=== PATIENT | female | born 1935 | race Two or more races ===

== ENCOUNTER 2023-09-06 12:23 | Inpatient (IN) | payer OTHER ==
[~2023-09-06] VITALS: Ht 144.8 cm; Wt 52.2 kg
[~2023-09-06 12:23] MED LIST: AMBIEN PAK10 MG PO; AVAPRO150 MG PO; CADUET 5 MG/101 TAB PO; CALTRATE-600/VI1 TA1 PO; CENTRUM SILVER1 TAB PO; EFFEXOR XR75 MG PO; KLONOPIN0.5 MG/TAB PO; PROTONIX40 MG PO; [UNRECOGNIZED DRUG - CODE] TD
--- NOTE | 2023-09-06 12:50 | NUR ---
SE RECIBE PTE ALERTA Y DESORIENTADA X3 EN COMPANIA DE MARADIAGA FAMILIAR. ESTA REFIERE QUE DESDE HACE ONEL KIRBY PTE SE [place] QUEJADO DE DOLOR ABDOMINAL EN CUADRANTE SUPERIOR DE MANERA INTERMITENTE. PTE TIENE HX DE PANCREATITIS, ALZHEIMER, PIEDRAS EN LA VESIVULA. SE MIDEN S/V Y SE UBICA.
[2023-09-06] MEDS ORDERED: EXELON1 EAC1 TD (12:52)
[2023-09-06] MEDS ORDERED: TOPROL XL25 M1 (12:52)
[2023-09-06] MEDS ORDERED: LOSARTAN POTAS100 MG PO (12:52)
[2023-09-06] MEDS ORDERED: ESCITALOPRAM OX10 MG PO (12:53)
[2023-09-06] MEDS ORDERED: PLAVIX75 MG (12:53)
[2023-09-06] MEDS ORDERED: PEPCID AC20 MG (12:53)
[2023-09-06] MEDS ORDERED: XELPROS2.5 ML (12:54)
[2023-09-06] MEDS ORDERED: MEMANTINE HCL10 MG PO (12:54)
[2023-09-06] MEDS ORDERED: MIRTAZAPINE15 M1 (12:54)
[2023-09-06 16:30] LABS: URINE APPEARANCE Clear; URINE BILIRRUBIN Negative (NEGATIVE); URINE COLOR Yellow; URINE GLUCOSE Negative (NEGATIVE); URINE LEUKOCYTE Negative; URINE NITRATE Negative; URINE PROTEIN Trace (NEGATIVE); URINE UROBILINOGEN 0.2 E.U./dl
[2023-09-06 16:34] LABS: URINE RBC 17.9 uL (0.0-20.8)
[2023-09-06 16:36] LABS: HEMATOCRIT 39.8 % (36.0-45.00); HEMOGLOBIN 13.9 g/dL (12.0-15.00); MEAN CELL VOLUME 89.5 fL (80.00-100.00); MEAN CORPUSCULAR HEMOGLOBIN 31.3 pg (27.00-32.0); PLATELET COUNT 225 K/uL (150-450); RED BLOOD COUNT 4.44 M/uL (4.00-6.00)
--- NOTE | 2023-09-06 16:45 | NUR ---
SE ORIENTA PTE SOBRE TX MEDICO EL CUAL REFIERE ENTENDER.SE LE EXTRAEN MUESTRAS BAJO MEDIDAS ASEPTICAS.SE CANALIZA Y SE ADMINISTRAN MEDICAMENTOS JOSE ORDEN MEDICA.SE ENTREGA CONTRASTE PARA CT Y SE ORIENTA.
[2023-09-06 16:46] LABS: URINE BACTERIA 0 uL (0.0-1933); URINE BLOOD Trace; URINE EPITHELIAL CELLS 0.4 uL (0.0-38.8); URINE WBC 0.6 uL (0.0-23.2)
[2023-09-06 16:59] LABS: BILIRUBIN TOTAL 3.42 mg/dL (0.3-1.2); BILIRUBIN,CONJUGATED 2.43 mg/dL (0.0-0.2); BILIRUBIN,UNCONJUGATED 0.99 mg/dL (0.0-0.6)
[2023-09-06 17:01] LABS: ALBUMIN 4.3 gm/dL (3.4-5.0); BILIRUBIN TOTAL 3.37 mg/dL (0.3-1.2); CREATININE SERUM 0.83 mg/dL (0.55-1.02); GFR 64.88; GLOBULINA 4.4 G/DL (2.4-3.5); POTASSIUM 4.33 mEq/L (3.5-5.1); TOTAL PROTEIN 8.7 gm/dL (6.4-8.2)
[2023-09-07 00:31] LABS: URINE APPEARANCE Clear; URINE BILIRRUBIN Negative (NEGATIVE); URINE BLOOD Small; URINE COLOR Yellow; URINE GLUCOSE Negative (NEGATIVE); URINE LEUKOCYTE Negative; URINE NITRATE Negative; URINE PROTEIN 30 (NEGATIVE)
[2023-09-07 00:33] LABS: INR 1.11; PARTIAL THROMBOPLASTIN TIME 25.9 SECONDS (22.0-34.0); PROTHROMBIN TIME 11.6 SECONDS (9.0-11.5)
[2023-09-07 00:34] LABS: URINE BACTERIA 13.8 uL (0.0-1933); URINE WBC 2.2 uL (0.0-23.2)
[2023-09-07 00:39] LABS: ALBUMIN 3.7 gm/dL (3.4-5.0); BILIRUBIN TOTAL 2.9 mg/dL (0.3-1.2); BILIRUBIN,CONJUGATED 2.19 mg/dL (0.0-0.2); BILIRUBIN,UNCONJUGATED 0.71 mg/dL (0.0-0.6)
[2023-09-07 00:43] LABS: URINE EPITHELIAL CELLS 0.6 uL (0.0-38.8)
[2023-09-07 18:10] LABS: CALCIUM 8.9 mg/dL (8.5-10.1); CREATININE SERUM 0.75 mg/dL (0.55-1.02); GFR 72.93; POTASSIUM 4.2 mEq/L (3.5-5.1)
[2023-09-09 06:28] LABS: HEMATOCRIT 35.3 % (36.0-45.00); HEMOGLOBIN 12.1 g/dL (12.0-15.00); MEAN CELL VOLUME 90.3 fL (80.00-100.00); MEAN CORPUSCULAR HEMOGLOBIN 31.1 pg (27.00-32.0); MEAN CORPUSCULAR HGB CONC 34.4 g/dl (32.0-36.0); PLATELET COUNT 197 K/uL (150-450); RED BLOOD COUNT 3.91 M/uL (4.00-6.00); RED CELL DISTRIBUTION WIDTH 13.5 % (11.5-14.5)
[2023-09-09 07:37] LABS: ALBUMIN 3.2 gm/dL (3.4-5.0); BILIRUBIN,CONJUGATED 0.43 mg/dL (0.0-0.2); BILIRUBIN,UNCONJUGATED 0.57 mg/dL (0.0-0.6); CALCIUM 8.6 mg/dL (8.5-10.1); CREATININE SERUM 0.76 mg/dL (0.55-1.02); GFR 71.82; POTASSIUM 4.26 mEq/L (3.5-5.1); TOTAL PROTEIN 6.1 gm/dL (6.4-8.2)
[2023-09-10] MEDS ORDERED: CIPRO500 MG PO (16:03)
[2023-09-10] MEDS ORDERED: METRONIDAZOLE500 MG PO (16:04)
[2023-09-10] MEDS ORDERED: URSO250 MG PO (16:06)
== END 2023-09-10 16:18 | disposition home or self-care (01) | DRG 446 ==
LOC: ER 12:24 → MEDI 22:57
PROVIDERS: General Practice; Nurse Practitioner Family; ADMIT Internal Medicine; ATTEND Internal Medicine
PROC: BW21YZZ Computerized Tomography (CT Scan) of Abdomen and Pelvis using Other Contrast (ICD-10-PCS; principal; 2023-09-06)
PROC: BF37ZZZ Magnetic Resonance Imaging (MRI) of Pancreas (ICD-10-PCS; 2023-09-06)
PROC: BW40ZZZ Ultrasonography of Abdomen (ICD-10-PCS; 2023-09-06)
PROC: B24BZZZ Ultrasonography of Heart with Aorta (ICD-10-PCS; 2023-09-09)
DX: K81.1 Chronic cholecystitis (principal); I25.10 Atherosclerotic heart disease of native coronary artery without angina pectoris; I11.9 Hypertensive heart disease without heart failure; G30.9 Alzheimer's disease, unspecified; F02.80 Dementia in other diseases classified elsewhere, unspecified severity, without behavioral disturbance, psychotic disturbance, mood disturbance, and anxiety; K57.30 Diverticulosis of large intestine without perforation or abscess without bleeding; Z95.2 Presence of prosthetic heart valve; I35.0 Nonrheumatic aortic (valve) stenosis

== ENCOUNTER 2023-12-12 11:57 | Emergency (ER) | payer OTHER ==
[~2023-12-12] VITALS: Ht 152.4 cm; Wt 54.4 kg
[~2023-12-12 11:57] MED LIST changes: +CIPRO500 MG PO; +ESCITALOPRAM OX10 MG PO; +EXELON1 EAC1 TD; +LOSARTAN POTAS100 MG PO; +MEMANTINE HCL10 MG PO; +METRONIDAZOLE500 MG PO; +MIRTAZAPINE15 M1; +PEPCID AC20 MG; +PLAVIX75 MG; +TOPROL XL25 M1; +URSO250 MG PO; +XELPROS2.5 ML
== END 2023-12-12 17:38 | disposition home or self-care (01) ==
LOC: ER 11:57
DX: S09.8XXA Other specified injuries of head, initial encounter (principal); W18.39XA Other fall on same level, initial encounter; Y93.89 Activity, other specified; Y92.018 Other place in single-family (private) house as the place of occurrence of the external cause; Z88.6 Allergy status to analgesic agent; Z88.0 Allergy status to penicillin; S62.605A Fracture of unspecified phalanx of left ring finger, initial encounter for closed fracture; S62.607A Fracture of unspecified phalanx of left little finger, initial encounter for closed fracture